=== PATIENT | female | born 1970 | race Caucasian/White ===

== ENCOUNTER 2021-03-15 00:10 | Emergency (ER) | payer OTHER, MEDICAID ==
[~2021-03-15] VITALS: Ht 170.2 cm; Wt 110.7 kg
[2021-03-15 00:20] VITALS: BP 150/101
--- NOTE | 2021-03-15 00:26 | NUR ---
PATIENT AMBUALTED TO BED 4 WITH STEADY GAIT.
[2021-03-15] MEDS ORDERED: IBUPROFEN 600 MG TAB PO ONE (00:30)
[2021-03-15] MEDS ORDERED: FAMOTIDINE 20 MG TAB PO ONE (00:30)
--- NOTE | 2021-03-15 00:30 | NUR ---
PT BIB SELF FOR C/O LEFT ARM PAIN 7 S/P FALL. PT REPORTS SHE LANDED ON HER WEIGHT ON HER LEFT ARM. NO NOTABLE DEFORMITY. PAIN UPON PALPATION TO LEFT WRIST. DENIES NUMBNESS OR TINGLING. REPORTS ARM FEELS "HEAVY." NO NOTED BRUISING OR SWELLING AT THIS TIME. CAP REFILL < 3 SECONDS. ROM INTACT TO LEFT ELBOW. LIMITED ROM TO LEFT WRIST.
--- NOTE | 2021-03-15 00:43 | NUR ---
PATIENT AMBUALTED TO RESTROOM WITH STEADY GAIT.
--- NOTE | 2021-03-15 00:46 | NUR ---
CONSENT FOR TDAP ADMINISTRATION SIGNED BY PATIENT. TDAP VACCINATION GIVEN WITH NADR. PATIENT ALSO GIVEN PO MEDICATIONS ORDERED BY ERMD.
--- NOTE | 2021-03-15 01:05 | NUR ---
PT TAKEN TO RAD
--- NOTE | 2021-03-15 01:13 | NUR ---
PT RETURNED FROM XRAY VIA W.C.
[2021-03-15 02:36] VITALS: BP 150/101
--- NOTE | 2021-03-15 02:36 | NUR ---
Patient discharged with v/s stable. Written and verbal after care instructions given and explained. Patient verbalized understanding. Ambulatory with steady gait. All questions addressed prior to discharge. Advised to follow up with PMD.
== END 2021-03-15 02:36 | disposition home or self-care (01) ==
LOC: MED 00:10
DX: S60.222A Contusion of left hand, initial encounter (principal); S50.311A Abrasion of right elbow, initial encounter; S80.812A Abrasion, left lower leg, initial encounter; W19.XXXA Unspecified fall, initial encounter; Y93.89 Activity, other specified; Y92.89 Other specified places as the place of occurrence of the external cause; Y99.8 Other external cause status
CPT/HCPCS: 73110; 73130; 90471; 90715; 99284